=== PATIENT | male | born 1990 | race Caucasian/White ===

== ENCOUNTER 2017-07-19 18:50 | Emergency (ER) | payer OTHER ==
[~2017-07-19] VITALS: Ht 185.4 cm; Wt 68.0 kg
--- OUTSIDE RECORDS SUMMARY | 2017-07-19 18:58 | XMS REPORT ---
Author Author JOSELITO BEVERLY [facility] Address [address] [place] [address] Care Team Providers Care Astronomy Instructor Name Role Phone JOSELITO BEVERLY Unavailable PROBLEMS Type Condition ICD9-CM Code [id number] Code Onset Dates Condition Status SNOMED Code Problem Hx of inguinal hernia repair Z98.89 Active 643869889 Problem Prostatitis, unspecified prostatitis type N41.9 Active 0126146 Problem Cannabis abuse F12.10 Active 99673413 Problem Mood disorder F39 Active 71725777 Problem Impulse control disorder in adult F63.9 Active 15591413 Problem Groin pain R10.30 Active 180407156 Problem ADHD (attention deficit hyperactivity disorder), combined type F90.2 Active 82178131 Problem Reactive depression F32.9 Active 55487755 ALLERGIES No Known Allergies SOCIAL HISTORY No smoking Hx information available PLAN OF CARE Activity Details Follow Up 2 Weeks Reason:Anger, depression VITAL SIGNS MEDICATIONS No Known Medications RESULTS No Results PROCEDURES Procedure Date Ordered Related Diagnosis Body Site Psych diagnostic evaluation, new patient Jun 08, 2016 IMMUNIZATIONS No Known Immunizations
--- OUTSIDE RECORDS SUMMARY | 2017-07-19 18:58 | XMS REPORT | Summary of Care ---
Author Author Jenise Calle APRN Organization Unknown Address [address], [place] [id number] Phone Unavailable Care Team Providers Care Water Pollution Specialist Name Role Phone Verify PCP PP Unavailable Functional Status Functional Status Health Issues* Name Dates Details Functional status health issues are not documented Status: Cognitive Status Health Issues* Name Dates Details Cognitive status health issues are not documented Status: Problems Name Dates Details Laceration of nose, complicated (873.30, S01.21XA) Status: Active Medications Name Dates Details No Reported Medications Active Allergies and Adverse Reactions Name Dates Details No Known Allergies Status: Active Procedures Procedure Dates Details Procedures not documented Immunization Name Dates Details Tdap (Adacel) Comments: Approx 2011 Social History Name Dates Details Smoking Status* Never smoker Vital Signs Date Test Result Details 28-Jul-2015 11:25 BP Systolic 124 mm[Hg] Status: BP Diastolic 84 mm[Hg] Status: Temperature 99 f Status: Heart Rate 82 /min Status: O2 SAT 99 % Status: Results Date Description Value Details Results not documented Plan of Care Planned Observations* Name Dates Details Planned Goals not documented Goal Planned Encounters* Appointment; Provider: Jason Tejada On 28-Jul-2015 15:30 Instructions * Instructions not documented Encounters Appointment; Jenise Calle Encounter Diagnosis: Problem not documented On 28-Jul-2015 11:30
--- OUTSIDE RECORDS SUMMARY | 2017-07-19 18:58 | XMS REPORT ---
Author Author GENERATED, SYSTEM Organization Unknown Address Unknown Phone Unavailable Care Team Providers Care Section Beamer Name Role Phone PP Unavailable Reason For Visit Chief Complaint CUT ON NOSE Social History Functional Status Vital Signs Results Problems Encounter Diagnosis No relevant problems exist. Encounters Encounter Diagnosis No relevant problems exist. Plan of Care Procedures No relevant procedures performed. Immunizations No immunizations administered or ordered. Hospital Course Hospital Discharge Instructions Allergies, Adverse Reactions, Alerts * Latex Allergy has not been assessed. * IV Contrast Allergy has not been assessed. Medication Medication reconciliation has not been performed.
--- OUTSIDE RECORDS SUMMARY | 2017-07-19 18:58 | XMS REPORT ---
Author TANG Wakefield Organization [employer] Address Unknown Phone Unavailable Care Team Providers Care Loader Name Role Phone TANG SOSA CP Unavailable Allergies No Known Allergies Problems Problem Type Condition Code Onset Dates Condition Status Problem Hx of inguinal hernia repair Z98.89 Active Problem Prostatitis, unspecified prostatitis type N41.9 Active Problem Groin pain R10.30 Active Medications Medication Code System Code Instructions Start Date End Date Status Dosage Bactrim DS [facility] [address]-86 800-160 MG Orally Twice a day Apr 17, 2015 Apr 27, 2015 1 tablet Results No Known Results Summary Purpose [employer] Submission
--- OUTSIDE RECORDS SUMMARY | 2017-07-19 18:58 | XMS REPORT | Summary of Care ---
Author Author Mallory Toro, Zafar Gomez Organization Unknown Address [address], [place] [id number] Phone Unavailable Care Team Providers Care Impregnation Operator Name Role Phone Zafar Tejada M.D. Unavailable Unavailable No Assigned PCP-Pt Confirmed PP Unavailable Unavailable Unavailable Functional Status Functional Status Health Issues* Name Dates Details Functional status health issues are not documented Status: Cognitive Status Health Issues* Name Dates Details Cognitive status health issues are not documented Status: Problems Name Dates Details Laceration of nose, complicated (873.30, S01.21XA) Status: Active Medications Name Dates Details Cephalexin 500 MG Oral Capsule 1 PO QID for 7 days Quantity: 28 Jason Tejada M.D.* Started 28-Jul-2015 ActiveBacitracin-Polymyxin B 500-65558 UNIT/GM External Ointment Apply to outside and inside of nose BID for 7 days * Quantity: 1 Refills: 0 Jason Tejada M.D.* Started 28-Jul-2015 [id number] GM Tube [place] 5-325 MG Oral Tablet Take 1 to 2 po every 4 hours prn pain * Quantity: 12 Refills: 0 Jason Tejada M.D.* Started 28-Jul-2015 Active Allergies and Adverse Reactions Name Dates Details No Known Allergies Status: Active Procedures Procedure Dates Details History of Laparoscopic Appendectomy History of Hernia Repair Procedures not documented Immunization Name Dates Details Tdap (Adacel) Comments: Approx 2011 Family History Mother* Name Dates Details No pertinent family history Status: Active Father* Name Dates Details No pertinent family history Status: Active Social History Name Dates Details Smoking Status* Smoker. current status unknown Vital Signs Date Test Result Details 28-Jul-2015 15:33 Temperature 97.9 f Status: Heart Rate 84 /min Status: Weight 158 lb Status: 28-Jul-2015 11:25 BP Systolic 124 mm[Hg] Status: BP Diastolic 84 mm[Hg] Status: Temperature 99 f Status: Heart Rate 82 /min Status: O2 SAT 99 % Status: Results Date Description Value Details Results not documented Plan of Care Planned Observations* Name Dates Details Planned Goals not documented Goal Instructions * Instructions not documented Encounters Appointment; Jason Tejada Encounter Diagnosis: Problem not documented On 05-Aug-2015 15:45 Appointment; Jason Tejada Encounter Diagnosis: Problem not documented On 28-Jul-2015 15:30 Appointment; Jenise Calle Encounter Diagnosis: Problem not documented On 28-Jul-2015 11:30
--- OUTSIDE RECORDS SUMMARY | 2017-07-19 18:58 | XMS REPORT ---
Author TANG Wakefield Organization [employer] Address Unknown Phone Unavailable Care Team Providers Care Commercial Escrow Officer Name Role Phone TANG SOSA CP Unavailable Allergies No Known Allergies Problems Problem Type Condition Code Onset Dates Condition Status Problem Hx of inguinal hernia repair Z98.89 Active Problem Prostatitis, unspecified prostatitis type N41.9 Active Problem Groin pain R10.30 Active Medications No Known Medications Results No Known Results Summary Purpose [employer] Submission
--- OUTSIDE RECORDS SUMMARY | 2017-07-19 18:58 | XMS REPORT ---
Author TANG Wakefield Organization [employer] Address Unknown Phone Unavailable Care Team Providers Care Chocolatier Name Role Phone TANG SOSA CP Unavailable Allergies, Adverse Reactions, Alerts Substance Reaction Event Type N.K.D.A. Info Not Available Non Drug Allergy Problems Problem Type Condition Code Onset Dates Condition Status Problem Hx of inguinal hernia repair Z98.89 Active Problem Prostatitis, unspecified prostatitis type N41.9 Active Problem Groin pain R10.30 Active Assessment Hx of inguinal hernia repair Z98.89 Active Assessment Prostatitis, unspecified prostatitis type N41.9 Active Assessment Groin pain R10.30 Active Medications Medication Code System Code Instructions Start Date End Date Status Dosage Bactrim DS [facility] [address]-88 800-160 MG Orally Twice a day Apr 17, 2015 Apr 27, 2015 1 tablet Procedures Procedure Coding System Code Date No Charge CPT-4 96570 Apr 17, 2015 Office Visit, Est Pt., Level 3 CPT-4 57633 Apr 17, 2015 URINALYSIS, AUTO, W/O SCOPE CPT-4 37770 Apr 17, 2015 Vital Signs Date/Time: Apr 17, 2015 Temperature 97.7 F Weight 162.7 lbs Height 73 in BMI 21.46 Index Blood Pressure Diastolic 78 mmHg Blood Pressure Systolic 122 mmHg Cardiac Monitoring Heart Rate 84 bpm Results Name Result Date Reference Range Unit Abnormality Flag UA LONG DIP (IN HOUSE) ----TINO Negative 20150417 ----NIT Negative 20150417 ----SG 1.025 20150417 ----KET Negative 20150417 ----DANIELLA Negative 20150417 ----GLU Negative 20150417 ----Odor none 20150417 ----pH 6.5 20150417 ----BLO Negative 20150417 ----URO 0.2 E.U./dL 20150417 ----Protein Negative 20150417 ----Lot # [id number] ----Exp date 20150417 ----Clarity clear 20150417 ----Color yellow 20150417 Summary Purpose [employer] Submission
--- OUTSIDE RECORDS SUMMARY | 2017-07-19 18:58 | XMS REPORT ---
Author ANNA Iraheta Organization [employer] Address Unknown Phone Unavailable Care Team Providers Care System Controller Name Role Phone ANNA SINGH CP Unavailable Allergies, Adverse Reactions, Alerts Substance Reaction Event Type N.K.D.A. Info Not Available Non Drug Allergy Problems Problem Type Condition Code Onset Dates Condition Status Problem Hx of inguinal hernia repair Z98.89 Active Problem Prostatitis, unspecified prostatitis type N41.9 Active Problem Groin pain R10.30 Active Assessment Acute right-sided low back pain with sciatica, sciatica laterality unspecified M54.40 Active Medications Medication Code System Code Instructions Start Date End Date Status Dosage Gabapentin [facility] [address]-76 300 MG Orally at hs prn November 27, 2015 1 capsule Cyclobenzaprine HCl [facility] [address]-75 10 mg Orally at hs November 27, 2015 Dec 27, 2015 1 tablet Procedures Procedure Coding System Code Date DEXAMETHASONE 4MG/ML (PER 1 MG) CPT-4 J1100 November 27, 2015 THER/PROPH/DIAG INJ, SC/IM CPT-4 56334 November 27, 2015 Office Visit, Est Pt., Level 3 CPT-4 89096 November 27, 2015 DEPO MEDROL 40 MG/ML CPT-4 J1030 November 27, 2015 Vital Signs Date/Time: November 27, 2015 Cardiac Monitoring Heart Rate 88 bpm Weight 156.7 lbs Height 73 in Blood Pressure Diastolic 70 mmHg Blood Pressure Systolic 108 mmHg Results No Known Results Summary Purpose [employer] Submission
--- OUTSIDE RECORDS SUMMARY | 2017-07-19 18:58 | XMS REPORT ---
Author Author Ze MYRA [facility] Address [address] [place] [address] Care Team Providers Care Larder Cook Name Role Phone angelicMALISSA BelcherY Unavailable PROBLEMS Type Condition ICD9-CM Code MBL52-PR Code Onset Dates Condition Status SNOMED Code Problem Hx of inguinal hernia repair Z98.89 Active 440229698 Problem Prostatitis, unspecified prostatitis type N41.9 Active 2834946 Problem Cannabis abuse F12.10 Active 73387001 Problem Mood disorder F39 Active 91034999 Problem Impulse control disorder in adult F63.9 Active 29858262 Problem Groin pain R10.30 Active 057764513 Problem ADHD (attention deficit hyperactivity disorder), combined type F90.2 Active 97517236 Problem Reactive depression F32.9 Active 78166510 ALLERGIES No Known Allergies SOCIAL HISTORY Never Assessed PLAN OF CARE Activity Details Follow Up 6 Weeks Reason: VITAL SIGNS Height 73 in 2016-06-08 Weight 148.5 lbs 2016-06-08 Heart Rate 72 bpm 2016-06-08 Respiratory Rate 18 2016-06-08 BMI 19.59 kg/m2 2016-06-08 Blood pressure systolic 118 mmHg 2016-06-08 Blood pressure diastolic 76 mmHg 2016-06-08 MEDICATIONS Medication Instructions Dosage Frequency Start Date End Date Duration Status Gabapentin 300 MG Orally daily 1 capsule at HS X 7 days then 2 caps at HS X 7 days then 3 caps at HS 24h May, 30 day(s) Active Citalopram Hydrobromide 20 MG Orally daily 0.5 tablet every am X 14 days then 1 tablet every am 24h May, 30 day(s) Active RESULTS No Results PROCEDURES No Known procedures IMMUNIZATIONS No Known Immunizations MEDICAL (GENERAL) HISTORY Type Description Date Medical History double hernia as a child Surgical History double hernia repair Surgical History appendectomy Hospitalization History surgery
--- OUTSIDE RECORDS SUMMARY | 2017-07-19 18:58 | XMS REPORT | Summary of Care ---
Author Author Mallory Toro, Zafar Gomez Organization Unknown Address [address], [place] [address] Phone Unavailable Care Team Providers Care Bass Singer Name Role Phone Zafar Tejada M.D. Unavailable [...] Jason Tejada M.D.* Started 28-Jul-2015 ActiveBacitracin-Polymyxin B 500-21072 UNIT/GM External Ointment Apply to outside and inside of nose BID for 7 days * Quantity: 1 Refills: 0 Jason Tejada M.D.* Started 28-Jul-2015 Iiivdf14 GM Tube [place] 5-325 MG Oral Tablet Take 1 to [...]
--- OUTSIDE RECORDS SUMMARY | 2017-07-19 18:59 | XMS REPORT | Continuity of Care Document ---
Author Author [facility] Address Unknown Phone Unavailable Allergies There is no data. Medications There is no data. Problems Date Dx Coded Attending Type Code Diagnosis Diagnosed By 10/02/2013 CLAUDIA HERNANDEZ DO V74.5 STD SCREEN 10/02/2013 AMIRAH GONZALEZ, LEENA Clinton V74.5 STD SCREEN 10/02/2013 CLAUDIA HERNANDEZ DO V74.5 STD SCREEN 03/07/2014 AMIRAH GONZALEZ, LEENA Clinton 780.79 FATIGUE 03/07/2014 CLAUDIA HERNANDEZ DO 780.79 FATIGUE 04/08/2014 CLAUDIA HERNANDEZ DO V58.69 HIGH RISK MEDICATION 08/05/2015 MARBIN CARDOSO Q50524 Nicotine dependence, chewing tobacco, uncomplicated 08/05/2015 MARBIN CARDOSO L57428 Nicotine dependence, other tobacco product, uncomplicated 08/05/2015 MARBIN CARDOSO [id number] Laceration without foreign body of nose, initial encounter 08/05/2015 MARBIN CARDOSO [id number] Striking against or struck by other objects, init encntr 08/05/2015 MARBIN CARDOSO Y990 Civilian activity done for income or pay Procedures Code [place] [address] ROUTINE VENIPUNCTURE 10/02/2013 80712 SYPHILLIS-STATE [facility] 10/03/2013 59012 HIV (STATE LAB) 10/03/2013 00047 GC/CHLAM URINE (STATE) 10/03/2013 11292 ROUTINE VENIPUNCTURE 03/07/2014 83873 CBC 03/08/2014 8596888 GFR CALC (RESULT ONLY) 03/08/2014 53463 CMP 03/08/2014 52991 TSH 03/08/2014 Results There is no data. Encounters ACCT No. Visit Date/Time Discharge Status Pt. Type Provider Facility Loc./Unit Complaint [id number] 04/08/2014 10:00:00 04/08/2014 23:59:59 CLS Outpatient CLAUDIA HERNANDEZ DO [id number] 03/07/2014 15:53:00 03/07/2014 23:59:59 CLS Outpatient LEENA MACARIO MD [id number] 10/02/2013 15:32:00 10/02/2013 23:59:59 CLS Outpatient CLAUDIA HERNANDEZ DO [id number] 07/28/2015 11:24:00 07/29/2015 02:58:33 DIS Emergency MARBIN CARDOSO
[2017-07-19] MEDS ORDERED: LACTATED RINGERS 1,000 ML IV SCH (19:15)
--- NOTE | 2017-07-19 19:17 | ED Syncope ---
General Chief Complaint: Dizziness/Syncope Stated Complaint: LOSS OF CONSCIOUSNESS Nursing Triage Note: pt presents to er from work with complaint of "passing out" twice at work. pt states he was not doing anything out of the ordinary whenever the episodes happened. Source of Information: Patient History of Present Illness Date Seen by Provider: Jul 19, 2017 Time Seen by Provider: 19:16 Initial Comments Patient is ambulatory to room 7 with reports of passing out twice at work. States that he was standing during the staff meeting he felt cold. He rubbed his eyes and states the next thing he knew he was waking up on the floor. He was told that he leaned backwards and was caught and lowered to the floor. He did not actually strike his head on the wall or the floor. At this time he feels back to normal. He states that he has passed out before after injuring his toe and one other time he passed out and was told he was dehydrated. 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 He denies any preceding chest pain palpitations or shortness of breath and no family history of sudden cardiac . Timing/Prior Episodes: No Prior History Loss of Consciousness: Brief (Seconds) Allergies and Home Medications Allergies Coded Allergies: No Known Drug Allergies (Unverified , 07/19/17) Patient Home Medication List Home Medication List Reviewed: Yes Constitutional: see HPI EENTM: see HPI Respiratory: see HPI, No dyspnea on exertion Cardiovascular: see HPI, No chest pain, No Hx of Intervention, No palpitations , syncope Genitourinary: no symptoms reported Musculoskeletal: no symptoms reported Skin: no symptoms reported Psychiatric/Neurological: No Symptoms Reported Past [id number]-[id number]-Xbedpr Hx Patient Social History Recent Foreign Travel: No Contact w/Someone Who Travel: No Recent Infectious Disease Expo: No Physical Exam Vital Signs Vital Signs - First Documented 07/19/17 19:05 Temp 96.0 Pulse 72 Resp 20 B/P (MAP) 122/78 (93) Pulse Ox 100 O2 Delivery Room Air Capillary Refill : Less Than 3 Seconds General Appearance: No Apparent Distress, WD/WN HEENT: PERRL/EOMI, TMs Normal Neck: Full Range of Motion, Normal Inspection Cardiovascular: Regular Rate, Rhythm, Normal Peripheral Pulses Respiratory: Lungs Clear, Normal Breath Sounds, No Accessory Muscle Use, No Respiratory Distress Gastrointestinal: Normal Bowel Sounds, Non Tender, Soft Neurologic/Psychiatric: Alert, Oriented x3, No Motor/Sensory Deficits Cranial Nerves: Normal Hearing, Normal Speech, PERRL Skin: Normal Color, Warm/Dry Progress/Results/Core Measures Results/Orders Lab Results Laboratory Tests Test 07/19/17 19:37 07/19/17 19:55 Range/Units White Blood Count 7.2 4.3-11.0 10^3/uL Red Blood Count 4.81 4.35-5.85 10^6/uL Hemoglobin 15.3 13.3-17.7 G/DL Hematocrit 43 40-54 % Mean Corpuscular Volume 89 80-99 FL Mean Corpuscular Hemoglobin 32 25-34 PG Mean Corpuscular Hemoglobin Concent 36 32-36 G/DL Red Cell Distribution Width 12.6 10.0-14.5 % Platelet Count 327 130-400 10^3/uL Mean Platelet Volume 9.2 7.4-10.4 FL Neutrophils (%) (Auto) 66 42-75 % Lymphocytes (%) (Auto) 22 12-44 % Monocytes (%) (Auto) 10 0-12 % Eosinophils (%) (Auto) 1 0-10 % Basophils (%) (Auto) 0 0-10 % Neutrophils # (Auto) 4.8 1.8-7.8 X 10^3 Lymphocytes # (Auto) 1.6 1.0-4.0 X 10^3 Monocytes # (Auto) 0.7 0.0-1.0 X 10^3 Eosinophils # (Auto) 0.1 0.0-0.3 10^3/uL Basophils # (Auto) 0.0 0.0-0.1 10^3/uL D-Dimer < 0.27 0.00-0.49 UG/ML Sodium Level 141 135-145 MMOL/L Potassium Level 3.8 3.6-5.0 MMOL/L Chloride Level 105 98-107 MMOL/L Carbon Dioxide Level 29 21-32 MMOL/L Anion Gap 7 5-14 MMOL/L Blood Urea Nitrogen 12 7-18 MG/DL Creatinine 0.88 0.60-1.30 MG/DL Estimat Glomerular Filtration Rate > 60 BUN/Creatinine Ratio 14 Glucose Level 73 70-105 MG/DL Calcium Level 9.5 8.5-10.1 MG/DL Total Bilirubin 0.7 0.1-1.0 MG/DL Aspartate Amino Transf (AST/SGOT) 15 5-34 U/L Alanine Aminotransferase (ALT/SGPT) 23 0-55 U/L Alkaline Phosphatase 82 40-136 U/L Total Protein 7.3 6.4-8.2 GM/DL Albumin 4.4 3.2-4.5 GM/DL Urine Color YELLOW Urine Clarity CLEAR Urine pH 6 5-9 Urine Specific [place] 1.020 1.016-1.022 Urine Protein 1+ H NEGATIVE Urine Glucose (UA) NEGATIVE NEGATIVE Urine Ketones NEGATIVE NEGATIVE Urine Nitrite NEGATIVE NEGATIVE Urine Bilirubin NEGATIVE NEGATIVE Urine Urobilinogen NORMAL NORMAL MG/DL Urine Leukocyte Esterase 1+ H NEGATIVE Urine RBC (Auto) NEGATIVE NEGATIVE Urine RBC NONE /HPF Urine WBC 2-5 /HPF Urine Crystals NONE /LPF Urine Bacteria NEGATIVE /HPF Urine Casts NONE /LPF Urine Mucus LARGE H /LPF Urine Culture Indicated NO My Orders Orders - MARYBEL TEJADA APRN Cbc With Automated Diff (07/19/17 19:14) Comprehensive Metabolic Panel (07/19/17 19:14) Ua Culture If Indicated (07/19/17 19:14) Saline Lock/Iv-Start (07/19/17 19:14) Ekg Tracing (07/19/17 19:14) Fibrin Degradation Products (07/19/17 19:14) Lactated Ringers (Lr 1000 Ml Iv Solution (07/19/17 19:15) Vital Signs/I&O Vital Sign - Last 12Hours 07/19/17 19:05 Temp 96.0 Pulse 72 Resp 20 B/P (MAP) 122/78 (93) Pulse Ox 100 O2 Delivery Room Air Blood Pressure Mean: 93 Departure Impression Impression: Primary Impression: Syncope and collapse Disposition: 01 HOME, SELF-CARE Condition: Stable Departure-Patient Inst. Decision time for Depature: 20:17 Referrals: SHAQUILLE MCKEON MD (PCP) Primary Care Physician CHRIS RUIZ MD FACP FAC JOSEPHS Davidson HEWITT MD, BASHAR J MD Patient Instructions: Syncope (Fainting) (DC) Add. Discharge Instructions: 1. Follow up with your primary care provider this week for recheck. They may wish to refer you to cardiology for additional testing such as an echocardiogram to look at the heart or a tilt table test. Return to ER for any concerns All discharge instructions reviewed with patient and/or family. Voiced understanding. Copy Copies To 1: SHAQUILLE MCKEON MD, PETER J APRN Jul 19, 2017 19:17
[2017-07-19] MEDS ORDERED: GABA-486 PO (19:42)
[2017-07-19 19:46] LABS: BASOPHILS % (AUTO) 0 % (0-10); EOSINOPHILS # (AUTO) 0.1 10^3/uL (0.0-0.3); EOSINOPHILS % (AUTO) 1 % (0-10); HEMATOCRIT 43 % (40-54); HEMOGLOBIN 15.3 G/DL (13.3-17.7); LYMPHOCYTES # (AUTO) 1.6 X 10^3 (1.0-4.0); LYMPHOCYTES % (AUTO) 22 % (12-44); MEAN CORPUSCULAR HEMOGLOBIN 32 PG (25-34); MEAN CORPUSCULAR HGB CONC 36 G/DL (32-36); MEAN CORPUSCULAR VOLUME 89 FL (80-99); MEAN PLATELET VOLUME 9.2 FL (7.4-10.4); MONOCYTES # (AUTO) 0.7 X 10^3 (0.0-1.0); MONOCYTES % (AUTO) 10 % (0-12); NEUTROPHILS # (AUTO) 4.8 X 10^3 (1.8-7.8); NEUTROPHILS % (AUTO) 66 % (42-75); PLATELET COUNT 327 10^3/uL (130-400); RED BLOOD COUNT 4.81 10^6/uL (4.35-5.85); RED CELL DISTRIBUTION WIDTH 12.6 % (10.0-14.5); WHITE BLOOD COUNT 7.2 10^3/uL (4.3-11.0)
[2017-07-19 20:01] LABS: BILIRUBIN,URINE NEGATIVE (NEGATIVE); CLARITY,URINE CLEAR; COLOR,URINE YELLOW; GLUCOSE, URINE (UA) NEGATIVE (NEGATIVE); KETONES,URINE NEGATIVE (NEGATIVE); LEUKOCYTE ESTERASE ,URINE 1+ (NEGATIVE); NITRITE,URINE NEGATIVE (NEGATIVE); PH,URINE 6 (5-9); PROTEIN,URINE 1+ (NEGATIVE); UROBILINOGEN,URINE NORMAL (NORMAL)
[2017-07-19 20:08] LABS: BACTERIA,URINE NEGATIVE /HPF
[2017-07-19 20:09] LABS: ALANINE AMINOTRANSFERASE 23 U/L (0-55); ALBUMIN 4.4 GM/DL (3.2-4.5); ALKALINE PHOSPHATASE 82 U/L (40-136); BILIRUBIN,TOTAL 0.7 MG/DL (0.1-1.0); BUN/CREATININE RATIO 14; CALCIUM 9.5 MG/DL (8.5-10.1); CARBON DIOXIDE 29 MMOL/L (21-32); CHLORIDE 105 MMOL/L (98-107); CREATININE SERUM 0.88 MG/DL (0.60-1.30); GFR ESTIMATED > 60; GLUCOSE 73 MG/DL (70-105); POTASSIUM 3.8 MMOL/L (3.6-5.0); SODIUM 141 MMOL/L (135-145); TOTAL PROTEIN 7.3 GM/DL (6.4-8.2)
[2017-07-19 20:28] VITALS: BP 116/58
== END 2017-07-19 20:28 | disposition home or self-care (01) ==
LOC: EDUNIT# 18:50 → ER 18:51
DX: R55 Syncope and collapse (principal)
CPT/HCPCS: 36415; 80053; 81000; 85025; 85379; 93005; 96360

== ENCOUNTER 2019-11-02 10:09 | Emergency (ER) | payer SELFPAY ==
[~2019-11-02] VITALS: Ht 185.4 cm; Wt 72.7 kg
[~2019-11-02 10:09] MED LIST: GABA-486 PO
[2019-11-02] MEDS ORDERED: LACTATED RINGERS 1,000 ML IV ONE ×2 (10:16→11:33)
[2019-11-02] MEDS ORDERED: ONDANSETRON 4 MG/2 ML (SDV) Z0FRAN IVP ONE (10:30)
--- NOTE | 2019-11-02 10:32 | ED Syncope ---
General Chief Complaint: Dizziness/Syncope Stated Complaint: FAINTING;DIZZINESS Source of Information: Patient History of Present Illness Date Seen by Provider: Nov 02, 2019 Time Seen by Provider: 10:16 Initial Comments PT ARRIVES VIA POV PT WAS AT THE DENTIST OFFICE, DR. GONZALEZ, AND HAD JUST HAD HIS MOUTH NUMBED, AND THEN FAINTED. STATES HE COULD FEEL IT COMING ON, JUST BEFORE IT HAPPENED NO INJURY EMS WAS CALLED TO THE OFFICE, THEN PT REFUSED TRANSPORT. GIRLFRIEND WAS DRIVING HIM HOME, AND HE BEGAN TO FEEL LIKE HE WAS GOING TO PASS OUT AGAIN AND GOT NAUSEATED, SO CAME HERE HE DID NOT HAVE THE PROCEDURE DONE IS STARTING TO FEEL BACK TO NORMAL NOW PT HAS NOT EATEN TODAY DENIES CHEST PAIN NO PALPITATIONS NO SHORTNESS OF BREATH NO ABDOMINAL PAIN NO HEADACHE NO VISION CHANGES NO PARESTHESIAS OR MOTOR DEFICITS STATES THIS HAS HAPPENED AT LEAST 3 OTHER TIMES IN THE LAST FEW YEARS--DIFFERENT CIRCUMSTANCES. NO RECENT ILLNESS NO KNOWN SICK CONTACTS OR EXPOSURE TO COVID-19 PT WORKS IN CONSTRUCTION Allergies and Home Medications Allergies Coded Allergies: No Known Drug Allergies (Unverified , 07/19/17) Patient Home Medication List Home Medication List Reviewed: Yes Review of Systems Constitutional: see HPI; No chills, No diaphoresis; dizziness; No fever; malaise, weakness EENTM: see HPI, other (TOP 2 POSTERIOR MOLARS WITH CAVITIES) Respiratory: no symptoms reported; No cough, No short of breath Cardiovascular: see HPI; No chest pain, No edema, No palpitations; syncope Gastrointestinal: see HPI; No abdominal pain; nausea; No vomiting Genitourinary: no symptoms reported Musculoskeletal: no symptoms reported Skin: no symptoms reported Psychiatric/Neurological: See HPI (SYNCOPE); Denies Headache, Denies Numbness, Denies Paresthesia, Denies Seizure, Denies Tingling, Denies Weakness Past [id number] Hx Past Med/Social Hx: Reviewed and Corrections made Patient Social History Alcohol Use: Denies Use Recreational Drug Use: Yes (DENIES BUT UDS + FOR BENZO'S AND THC 11/02/19) Drug of Choice: DENIES, BUT UDS + FOR BENZO'S AND THC 11/02/19 Smoking Status: Current Everyday Smoker Type Used: Cigarettes, Smokeless Tobacco Recent Foreign Travel: No Contact w/Someone Who Travel: No Recent Hopitalizations: No Immunizations Up To Date Tetanus Booster (TDap): Unknown PED Vaccines UTD: Yes Seasonal Allergies Seasonal Allergies: No Past Medical History Surgeries: Yes (BILATERAL INGUINAL HERNIA REPAIR CHILD) Abdominal, Appendectomy Respiratory: No Cardiac: No Neurological: No Genitourinary: No Gastrointestinal: Yes (BILATERAL INGUINAL HERNIA REPAIR CHILD; APPY) Abdominal Hernia Musculoskeletal: No Endocrine: No HEENT: Yes (DENTAL CARIES) Cancer: No Psychosocial: No Integumentary: No Blood Disorders: No Physical Exam Vital Signs Vital Signs - First Documented 11/02/19 10:16 Temp 36.7 Pulse 55 Resp 18 B/P (MAP) 100/57 (71) Pulse Ox 99 O2 Delivery Room Air Capillary Refill : Height, Weight, BMI Height: 6'1.00" Weight: 150lbs. oz. 68.396998mv; BMI Method:Stated General Appearance: No Apparent Distress, Thin HEENT: PERRL/EOMI, TMs Normal, Normal ENT Inspection, Pharynx Normal, Moist Mucous Membranes, Other (UPPER RIGHT MOLARS 2 AND 3 WITH CARIES. NO SIGNS OF INFECTION. NO SWELLING TO MOUTH OR FACE. ) Neck: Full Range of Motion, Normal Inspection, Non Tender, Supple; No Carotid Bruit, No JVD Cardiovascular: Regular Rate, Rhythm, No Edema, No JVD, No Murmur, Normal Peripheral Pulses Respiratory: Normal Breath Sounds, No Accessory Muscle Use, No Respiratory Distress Gastrointestinal: Normal Bowel Sounds, No Organomegaly, No Pulsatile Mass, Non Tender, Soft Back: Normal Inspection, No CVA Tenderness, No Vertebral Tenderness Extremities: Normal Capillary Refill, Normal Inspection, Normal Range of Motion, Non Tender, No Calf Tenderness, No Pedal Edema Neurologic/Psychiatric: Alert, Oriented x3, No Motor/Sensory Deficits, Normal Mood/Affect, sports writer II-XII Norm as Tested Cranial Nerves: Normal Hearing, Normal Speech, PERRL Coordination/Gait: Normal Gait Motor/Sensory: No Motor Deficit, No Sensory Deficit Skin: Warm/Dry, Pallor Progress/Results/Core Measures Results/Orders Lab Results Laboratory Tests Test 11/02/19 10:38 11/02/19 10:40 11/02/19 11:06 Range/Units Glucometer 103 70-110 MG/DL White Blood Count 6.3 4.3-11.0 10^3/uL Red Blood Count 4.47 4.35-5.85 10^6/uL Hemoglobin 14.3 13.3-17.7 G/DL Hematocrit 41 40-54 % Mean Corpuscular Volume 91 80-99 FL Mean Corpuscular Hemoglobin 32 25-34 PG Mean Corpuscular Hemoglobin Concent 35 32-36 G/DL Red Cell Distribution Width 12.7 10.0-14.5 % Platelet Count 248 130-400 10^3/uL Mean Platelet Volume 9.8 7.4-10.4 FL Neutrophils (%) (Auto) 59 42-75 % Lymphocytes (%) (Auto) 28 12-44 % Monocytes (%) (Auto) 11 0-12 % Eosinophils (%) (Auto) 2 0-10 % Basophils (%) (Auto) 1 0-10 % Neutrophils # (Auto) 3.7 1.8-7.8 X 10^3 Lymphocytes # (Auto) 1.7 1.0-4.0 X 10^3 Monocytes # (Auto) 0.7 0.0-1.0 X 10^3 Eosinophils # (Auto) 0.1 0.0-0.3 10^3/uL Basophils # (Auto) 0.1 0.0-0.1 10^3/uL Prothrombin Time 12.7 12.2-14.7 SEC INR Comment 0.9 0.8-1.4 Activated Partial Thromboplast Time 26 24-35 SEC Sodium Level 139 135-145 MMOL/L Potassium Level 4.3 3.6-5.0 MMOL/L Chloride Level 108 H 98-107 MMOL/L Carbon Dioxide Level 23 21-32 MMOL/L Anion Gap 8 5-14 MMOL/L Blood Urea Nitrogen 14 7-18 MG/DL Creatinine 0.96 0.60-1.30 MG/DL Estimat Glomerular Filtration Rate > 60 BUN/Creatinine Ratio 15 Glucose Level 94 70-105 MG/DL Calcium Level 9.1 8.5-10.1 MG/DL Corrected Calcium 8.7 8.5-10.1 MG/DL Magnesium Level 2.2 1.6-2.4 MG/DL Total Bilirubin 0.8 0.1-1.0 MG/DL Aspartate Amino Transf (AST/SGOT) 19 5-34 U/L Alanine Aminotransferase (ALT/SGPT) 20 0-55 U/L Alkaline Phosphatase 79 40-136 U/L Total Creatine Kinase 100 30-200 U/L Creatine Kinase MB 1.1 <6.6 NG/ML Myoglobin 33.7 10.0-92.0 NG/ML Total Protein 6.9 6.4-8.2 GM/DL Albumin 4.5 3.2-4.5 GM/DL Urine Color DARK YELLOW Urine Clarity CLEAR Urine pH 5.5 5-9 Urine Specific [place] >=1.030 1.016-1.022 Urine Protein 2+ H NEGATIVE Urine Glucose (UA) NEGATIVE NEGATIVE Urine Ketones NEGATIVE NEGATIVE Urine Nitrite NEGATIVE NEGATIVE Urine Bilirubin 1+ H NEGATIVE Urine Urobilinogen 1.0 < = 1.0 MG/DL Urine Leukocyte Esterase NEGATIVE NEGATIVE Urine RBC (Auto) NEGATIVE NEGATIVE Urine RBC RARE /HPF Urine WBC 0-2 /HPF Urine Squamous Epithelial Cells RARE /HPF Urine Crystals NONE /LPF Urine Bacteria FEW H /HPF Urine Casts NONE /LPF Urine Mucus SMALL H /LPF Urine Culture Indicated NO Urine Opiates Screen NEGATIVE NEGATIVE Urine Oxycodone Screen NEGATIVE NEGATIVE Urine Methadone Screen NEGATIVE NEGATIVE Urine Propoxyphene Screen NEGATIVE NEGATIVE Urine Barbiturates Screen NEGATIVE NEGATIVE Ur Tricyclic Antidepressants Screen NEGATIVE NEGATIVE Urine Phencyclidine Screen NEGATIVE NEGATIVE Urine Amphetamines Screen NEGATIVE NEGATIVE Urine Methamphetamines Screen NEGATIVE NEGATIVE Urine Benzodiazepines Screen POSITIVE H NEGATIVE Urine Cocaine Screen NEGATIVE NEGATIVE Urine Cannabinoids Screen POSITIVE H NEGATIVE My Orders Orders - GARRETT SILVER DO Accucheck Stat ONCE (11/02/19 10:16) Ed Iv/Invasive Line Start (11/02/19 10:16) Ekg Tracing (11/02/19 10:16) Monitor-Rhythm Ecg Trace Only (11/02/19 10:16) Orthostatic Vital Signs (Adult (11/02/19 10:16) Cbc With Automated Diff (11/02/19 10:16) Comprehensive Metabolic Panel (11/02/19 10:16) Creatine Kinase (11/02/19 10:16) Creatine Kinase Mb (11/02/19 10:16) Drug Screen Stat (Urine) (11/02/19 10:16) Magnesium (11/02/19 10:16) Protime With Inr (11/02/19 10:16) Partial Thromboplastin Time (11/02/19 10:16) Ua Culture If Indicated (11/02/19 10:16) Myoglobin Serum (11/02/19 10:16) Ed Iv/Invasive Line Start (11/02/19 10:16) Lactated Ringers (Lr 1000 Ml Iv Solution (11/02/19 10:16) Ondansetron Injection (Zofran Injectio (11/02/19 10:30) Ed Iv/Invasive Line Start (11/02/19 11:33) Lactated Ringers (Lr 1000 Ml Iv Solution (11/02/19 11:33) Medications Given in ED Current Medications Medications Dose Ordered Sig/Kwame Route Start Time Stop Time Status Last Admin Dose Admin Lactated Ringer's 1,000 ml @ 0 mls/hr Q0M ONCE IV 11/02/19 10:16 11/02/19 10:24 DC 11/02/19 10:46 1,000 MLS/HR Lactated Ringer's 1,000 ml @ 0 mls/hr Q0M ONCE IV 11/02/19 11:33 11/02/19 11:34 DC 11/02/19 11:38 1,000 MLS/HR Ondansetron HCl 4 mg ONCE ONCE IVP 11/02/19 10:30 11/02/19 10:31 DC 11/02/19 10:45 4 MG Vital Signs/I&O 11/02/19 11/02/19 11/02/19 10:16 10:57 11:22 Temp 36.7 Pulse 55 54 52 64 Resp 18 18 B/P (MAP) 100/57 (71) 100/58 (72) 109/59 (76) 98/61 (73) 98/57 (71) Pulse Ox 99 99 O2 Delivery Room Air Room Air Progress Progress Note : Progress Note ORTHOSTATICS MILDLY ABNORMAL, AND URINE IS VERY DARK GIVEN IV FLUIDS AND ZOFRAN WITH RESOLUTION OF SYMPTOMS AND BLOOD PRESSURE UP TO 110'S SYSTOLIC. Initial ECG Impression Date: Nov 02, 2019 Initial ECG Impression Time: 10:37 Initial ECG Rate: 53 Initial ECG Impression: Nonspecific Changes (PROBABLE REPOLARIZATION PATTERN) Departure Impression Primary Impression: Syncope Additional Impressions: Volume depletion Illicit drug use Disposition: 01 HOME, SELF-CARE Condition: Improved Departure-Patient Inst. Referrals: SHAQUILLE MCKEON MD (PCP) Primary Care Physician Patient Instructions: Syncope (Fainting) (DC), Drug Abuse and Drug Addiction (DC), Dehydration, Adult (DC) Add. Discharge Instructions: LOTS OF CLEAR LIQUIDS--WATER, BROTH, JELLO, GATORADE--DRINK ENOUGH SO YOU ARE URINATING EVERY 2-3 HOURS WHILE AWAKE NO DRUGS!!! RETURN TO ER IF SYMPTOMS WORSEN FOLLOW UP WITH YOUR DR IF YOU CONTINUE TO HAVE PROBLEMS All discharge instructions reviewed with patient and/or family. Voiced understanding. GARRETT SILVER DO Nov 02, 2019 10:32
[2019-11-02 10:57] VITALS: BP_SYST 100; BP_SYST 98; BP_DIAS 57; BP_DIAS 58; BP_DIAS 61
--- NOTE | 2019-11-02 11:02 | NUR ---
AMB TO BATHROOM TO OBTAIN
[2019-11-02 11:05] LABS: BASOPHILS # (AUTO) 0.1 10^3/uL (0.0-0.1); BASOPHILS % (AUTO) 1 % (0-10); EOSINOPHILS # (AUTO) 0.1 10^3/uL (0.0-0.3); EOSINOPHILS % (AUTO) 2 % (0-10); HEMATOCRIT 41 % (40-54); HEMOGLOBIN 14.3 G/DL (13.3-17.7); LYMPHOCYTES # (AUTO) 1.7 X 10^3 (1.0-4.0); LYMPHOCYTES % (AUTO) 28 % (12-44); MEAN CORPUSCULAR HEMOGLOBIN 32 PG (25-34); MEAN CORPUSCULAR HGB CONC 35 G/DL (32-36); MEAN CORPUSCULAR VOLUME 91 FL (80-99); MEAN PLATELET VOLUME 9.8 FL (7.4-10.4); MONOCYTES # (AUTO) 0.7 X 10^3 (0.0-1.0); MONOCYTES % (AUTO) 11 % (0-12); NEUTROPHILS # (AUTO) 3.7 X 10^3 (1.8-7.8); NEUTROPHILS % (AUTO) 59 % (42-75); PLATELET COUNT 248 10^3/uL (130-400); RED CELL DISTRIBUTION WIDTH 12.7 % (10.0-14.5); WHITE BLOOD COUNT 6.3 10^3/uL (4.3-11.0)
[2019-11-02 11:10] LABS: ALBUMIN 4.5 GM/DL (3.2-4.5); INR 0.9 (0.8-1.4); PROTHROMBIN TIME PATIENT 12.7 SEC (12.2-14.7)
[2019-11-02 11:11] LABS: CHLORIDE 108 MMOL/L (98-107); POTASSIUM 4.3 MMOL/L (3.6-5.0); SODIUM 139 MMOL/L (135-145)
[2019-11-02 11:11] LABS: CLARITY,URINE CLEAR; COLOR,URINE DARK YELLOW; GLUCOSE, URINE (UA) NEGATIVE (NEGATIVE); KETONES,URINE NEGATIVE (NEGATIVE); LEUKOCYTE ESTERASE ,URINE NEGATIVE (NEGATIVE); NITRITE,URINE NEGATIVE (NEGATIVE); PH,URINE 5.5 (5-9); PROTEIN,URINE 2+ (NEGATIVE)
[2019-11-02 11:12] LABS: CALCIUM 9.1 MG/DL (8.5-10.1)
[2019-11-02 11:13] LABS: GLUCOSE 94 MG/DL (70-105); TOTAL PROTEIN 6.9 GM/DL (6.4-8.2)
[2019-11-02 11:14] LABS: CARBON DIOXIDE 23 MMOL/L (21-32)
[2019-11-02 11:15] LABS: BILIRUBIN,TOTAL 0.8 MG/DL (0.1-1.0)
[2019-11-02 11:16] LABS: ALKALINE PHOSPHATASE 79 U/L (40-136); CREATININE SERUM 0.96 MG/DL (0.60-1.30); GFR ESTIMATED > 60
[2019-11-02 11:17] LABS: BUN/CREATININE RATIO 15
[2019-11-02 11:19] LABS: ALANINE AMINOTRANSFERASE 20 U/L (0-55); MAGNESIUM 2.2 MG/DL (1.6-2.4)
[2019-11-02 11:20] LABS: CREATINE KINASE 100 U/L (30-200)
[2019-11-02 11:22] VITALS: BP 109/59
[2019-11-02 11:24] LABS: BACTERIA,URINE FEW /HPF; BILIRUBIN,URINE 1+ (NEGATIVE); RBC,URINE RARE /HPF; SQUAMOUS EPITHELIAL CELL,UR RARE /HPF; WBC,URINE 0-2 /HPF
[2019-11-02 11:25] LABS: AMPHETAMINE SCREEN, URINE NEGATIVE (NEGATIVE); BARBITURATE SCREEN URINE NEGATIVE (NEGATIVE); BENZODIAZEPINES SCREEN URINE POSITIVE (NEGATIVE); CANNABINOID SCREEN, URINE POSITIVE (NEGATIVE); COCAINE SCREEN URINE NEGATIVE (NEGATIVE); METHADONE STAT NEGATIVE (NEGATIVE); METHAMPHETAMINE SCREEN URINE S NEGATIVE (NEGATIVE); OPIATE SCREEN URINE NEGATIVE (NEGATIVE); OXYCODONE STAT NEGATIVE (NEGATIVE); PROPOXYPHENE STAT NEGATIVE (NEGATIVE); TRICYCLIC ANTIDEPRESSANTS SCRE NEGATIVE (NEGATIVE)
[2019-11-02 11:27] LABS: CREATINE KINASE MB 1.1 NG/ML (<6.6)
--- NOTE | 2019-11-02 11:35 | NUR ---
TO ROOM APX 900CC OF FLUIDS INFUSED PATIENT REPORTS FEELING BETTR.
[2019-11-02 12:25] VITALS: BP 113/66
== END 2019-11-02 12:25 | disposition home or self-care (01) ==
LOC: EDUNIT# 10:09 → ER 10:10
DX: R55 Syncope and collapse (principal); E86.9 Volume depletion, unspecified; F12.90 Cannabis use, unspecified, uncomplicated; F13.90 Sedative, hypnotic, or anxiolytic use, unspecified, uncomplicated; F17.290 Nicotine dependence, other tobacco product, uncomplicated; F17.210 Nicotine dependence, cigarettes, uncomplicated
CPT/HCPCS: 36415; 80053; 80306; 81000; 82550; 82553; 82962; 83735; 83874; 85025; 85610; 85730; 93005